=== PATIENT | female | born 1995 | race Caucasian/White ===

== ENCOUNTER → 2023-03-07 | Outpatient (CLI) | payer BC, OTHER | LOC: M RAD 13:53 | PROVIDERS: ATTEND Internal Medicine Nephrology | DX: I10 Essential (primary) hypertension (principal) ==

== ENCOUNTER → 2023-03-20 | Outpatient (REF) | payer BC, OTHER | LOC: M LAB REF 17:20 | PROVIDERS: ATTEND Internal Medicine Nephrology | DX: I10 Essential (primary) hypertension (principal) ==

== ENCOUNTER → 2023-08-14 | Outpatient (CLI) | payer BC | LOC: M RAD 11:40 | PROVIDERS: ATTEND Obstetrics & Gynecology | DX: Z34.01 Encounter for supervision of normal first pregnancy, first trimester (principal) ==

== ENCOUNTER → 2023-10-31 | Outpatient (REF) | payer BC ==
[2023-10-31 18:59] LABS: BACTERIA, URINE AUTO NEGATIVE (NEGATIVE); RBC, URINE AUTO 2 /HPF (0-3); SQUAMOUS EPITHELIAL CELL UR AU 0 /HPF (0-6); WBC, URINE AUTO 9 /HPF (0-3)
== END ==
LOC: M LAB REF 17:10
PROVIDERS: ATTEND Internal Medicine Nephrology
DX: N30.01 Acute cystitis with hematuria (principal)

== ENCOUNTER → 2023-12-28 | Outpatient (REF) | LOC: M EMP 09:00 | PROVIDERS: ATTEND Family Medicine | DX: Z11.52 Encounter for screening for COVID-19 (principal) ==